=== PATIENT | female | born 1965 | race Caucasian/White ===

== ENCOUNTER 2023-08-13 22:58 | Emergency (ER) | payer BC ==
[~2023-08-13] VITALS: Ht 165.1 cm; Wt 114.0 kg
[2023-08-13 23:01] VITALS: BP 154/72; PULSE 88; RESP 18; TEMP 98.6; O2SAT 100
[2023-08-14] MEDS ORDERED: ACETAMINOPHEN 500MG TABLET PO ONE (03:00)
== END 2023-08-14 03:08 | disposition home or self-care (01) ==
LOC: ER 23:15
DX: R53.83 Other fatigue (principal); E11.9 Type 2 diabetes mellitus without complications; I10 Essential (primary) hypertension
CPT/HCPCS: 99283

== ENCOUNTER 2023-08-23 21:29 | Emergency (ER) | payer BC ==
[~2023-08-23] VITALS: Ht 162.6 cm; Wt 85.0 kg
[2023-08-23 23:09] VITALS: BP 146/76; PULSE 95; RESP 14; O2SAT 98
[2023-08-23 23:22] VITALS: TEMP 98.6
[2023-08-23] MEDS: ACETAMINOPHEN 500MG TABLET PO ONE (23:22)
[2023-08-24 00:05] LABS: BASOPHILS % 0.6 % (0.0-2.0); EOSINOPHILS % 2.2 % (0.0-5.0); HEMATOCRIT. 37.2 % (36.0-48.0); HEMOGLOBIN. 12.6 g/dL (12.0-16.0); LYMPHOCYTES % 28.2 % (20.0-50.0); MEAN CORPUSCULAR HEMOGLOBIN 29.9 pg (28.0-32.0); MEAN CORPUSCULAR HGB CONC 33.7 g/dL (31.0-37.0); MEAN CORPUSCULAR VOLUME 88.7 fL (81.0-99.0); MEAN PLATELET VOLUME 7.7 fl (7.4-10.4); MONOCYTES % 9.4 % (2.0-8.0); NEUTROPHILS % 59.6 % (40.0-76.0); PLATELET 274 x1000/uL (130-400); RED CELL DISTRIBUTION WIDTH 14.8 % (11.6-14.6); WHITE BLOOD COUNT 8.3 x1000/uL (4.5-11.0)
[2023-08-24 00:16] LABS: ALANINE AMINOTRANSFERASE 32 IU/L (10-49); ALBUMIN 4.6 g/dL (3.2-4.8); ASPARTATE AMINOTRANSFERASE 20 IU/L (<34); BILIRUBIN TOTAL 0.3 mg/dL (0.1-1.0); CALCIUM 9.5 mg/dL (8.7-10.4); CARBON DIOXIDE 26 mEq/L (21-32); CHLORIDE 105 mEq/L (98-107); CREATININE 0.8 mg/dL (0.6-1.0); GLUCOSE 195 mg/dL (70-105); POTASSIUM 3.6 mEq/L (3.5-5.1); PROTEIN TOTAL 7.7 g/dL (6.0-8.3); SODIUM 140 mEq/L (136-145); UREA NITROGEN BLOOD 12 mg/dL (9-23)
[2023-08-24] MEDS ORDERED: BO1 TP (01:34)
[2023-08-24] MEDS ORDERED: CEPH500C2 MT (01:34)
[2023-08-24] MEDS ORDERED: IBUP-2029 MT (01:34)
[2023-08-24] MEDS ORDERED: CLOT15CR27 TP (01:34)
== END 2023-08-24 02:33 | disposition home or self-care (01) ==
LOC: ER 21:29
DX: R60.9 Edema, unspecified (principal); M79.671 Pain in right foot; M79.672 Pain in left foot; B37.9 Candidiasis, unspecified; I51.7 Cardiomegaly; E11.9 Type 2 diabetes mellitus without complications; I10 Essential (primary) hypertension; Z79.899 Other long term (current) drug therapy
CPT/HCPCS: 36415; 71045; 80053; 83880; 85025; 93970; 99284